=== PATIENT | male | born 1985 | race Caucasian/White ===

== ENCOUNTER 2021-11-21 09:18 | Emergency (ER) | payer BC, MEDICAID ==
[~2021-11-21] VITALS: Ht 172.7 cm; Wt 84.0 kg
[2021-11-21] MEDS ORDERED: KETOROLAC 30MG/ML VIAL IV ONE (10:15)
[2021-11-21] MEDS ORDERED: DEXAMETHASONE 10 MG/ML VIAL IV ONE (10:15)
[2021-11-21 10:56] LABS: HEMATOCRIT. 40.4 % (42.0-52.0); HEMOGLOBIN. 14.1 g/dL (14.0-18.0); MEAN CORPUSCULAR HEMOGLOBIN 32.9 pg (28.0-32.0); MEAN CORPUSCULAR VOLUME 94.6 fL (80.0-94.0); MEAN PLATELET VOLUME 8.1 fl (7.4-10.4); PLATELET 300 x1000/uL (130-400); RED BLOOD CELL COUNT 4.27 mill/uL (4.7-6.1); RED CELL DISTRIBUTION WIDTH 12.8 % (11.6-14.6)
[2021-11-21 11:02] LABS: CHLORIDE 98 mEq/L (98-107)
[2021-11-21 11:28] LABS: PLATELET ESTIMATE NORMAL
[2021-11-21 13:00] VITALS: BP 110/73
== END 2021-11-21 13:20 | disposition short-term general hospital (02) ==
LOC: ER 09:18
DX: U07.1 COVID-19 (principal); R09.02 Hypoxemia; F41.9 Anxiety disorder, unspecified; Z20.822 Contact with and (suspected) exposure to COVID-19
CPT/HCPCS: 36415; 71045; 80053; 83880; 84484; 85025; 87426; 93005; 96374; 96375; 99285; J1100; J1885